=== PATIENT | male | born 1980 | race African-American/Black ===

== ENCOUNTER 2017-02-12 07:30 | Emergency (ER) | payer SELFPAY ==
[2017-02-12] MEDS ORDERED: BENTYL I.M. INJ 10 MG IM ONE ×2 (07:41→07:44)
[2017-02-12 07:49] VITALS: BP 146/68; BMI 45.6
--- NOTE | 2017-02-12 08:10 | DR.GENAD ---
HPI - PCP Primary Care Physician: RAY - Complaint/Symptoms Chief Complaint:: PT C/O SEVERE ABD PAIN THAT STARTED LAST NIGHT WITH DIARRHEA. PT DENIES ANY N/V - Nurses notes reviewed Nurses Notes Review: Yes - Source History Provided: Patient - Mode of Arrival Mode of Arrival: EMS - Timing Onset of Chief Complaint: 02/12/17 Came on: At Night - Duration Duration: Constant How lon Duration: Hours - Location Location: abdomin - Severity Severity: Moderate - Modifying Factors Worsens:: food - Associated Signs and Symptoms Associated Signs and Symptoms: pain PMH - PMH Past Medical History: Yes Past Medical History: Hypertension Past Surgical History: Yes Surgical History: Abdominal Surgery, Other - Family History History of Family Medical Conditions: Yes Family Medical History: Diabetes Mellitus, Hypertension - Social History Does any household member use tobacco: No Alcohol Use: None Do you use any recreational Drugs:: No Lives With: Family Lives Where: Home - infectious screening In the last 2 months have you had wt loss of >10#?: NO Have you had fever, night sweats or hemotysis?: No Have you traveled outside the country in the last 6 months?: No Isolation: Standard ROS - Review of Systems Constitutional: No Symptoms Reported Eyes: No Symptoms Reported ENTM: No Symptoms Reported Respiratoy: No Symptoms Reported Cardiovascular: No Symptoms Reported Gastrointestinal/Abdominal: Abdominal Pain, Diarrhea Genitourinary: No Symptoms Reported Neurological: No Symptoms Reported Musculoskeletal: No Symptoms Reported Integumentary: No Symptoms Reported Hematologic/Lymphatic: No Symptoms Reported Endocrine: No Symptoms Reported Psychiatric: No Symptoms Reported PE - Vital Signs Vitals: Temperature 97.4 F Pulse Rate 82 Respiratory Rate 22 Blood Pressure 146/68 O2 Sat by Pulse Oximetry 97 - General Limitations: No Limitations General Appearance: Alert - Head Head Exam: Normal Inspection, Atraumatic - Eyes Eye exam: Normal Appearance, Conjunctival Injection - ENT ENT Exam: Normal Exam External Ear Exam: Normal External Inspection Nose Exam: Normal Nose Exam Mouth Exam: Normal Inspection Throat Exam: Normal Inspection - Neck Neck Exam: Normal Inspection, Full ROM, Trachea Midline - Chest Chest Inspection: Normal Inspection - Respiratory Respiratory Exam: Normal Lung Sounds Bilat. negative: Accessory Muscle Use, Respiratory Distress Respiratory Exam: Bilateral Clear to Auscultation - Cardiovascular Cardiovascular Exam: Regular Rate - Abdominal Exam Abdominal Exam: Normal Inspection, Soft, Tenderness, Hypoactive Bowel Sounds. negative: Distention, Guarding, Rebound Abdominal Tenderness: Diffuse - Extremities Extremities Exam: Normal Inspection - Back Back Exam: Normal Inspection - Neurologic Neurological Exam: Alert, Oriented X3, CN II-XII Intact - Psychiatric Psychiatric Exam: Flat Affect - Skin Skin Exam: Intact, Normal Color ROR - Labs Reviewed Result Diagrams: 02/12/17 08:30 02/12/17 08:30 Laboratory: 02/12/17 12:56 Stool - Final WBC 9.9 X10^3/uL (3.6-10.0) 02/12/17 08:30 RBC 4.54 X10^6/uL (4.7-6.0) L 02/12/17 08:30 Hgb 13.9 g/dL (13.5-18.0) 02/12/17 08:30 Hct 43.0 % (42.0-54.0) 02/12/17 08:30 MCV 94.8 fL (80.0-100.0) 02/12/17 08:30 MCH 30.6 pg (27.0-34.0) 02/12/17 08:30 MCHC 32.3 g/dL (33.0-35.0) L 02/12/17 08:30 RDW 13.7 % (11.6-16.5) 02/12/17 08:30 Plt Count 209 X10^3/uL (150.0-450.0) 02/12/17 08:30 Plt Count Comment Adequate (ADEQUATE) 02/12/17 08:30 MPV 8.2 fL (7.4-11.0) 02/12/17 08:30 Neut % 61.2 % (42.0-75.0) 02/12/17 08:30 Lymph % 29.6 % (21.0-51.0) 02/12/17 08:30 Coos % 5.8 % (0.0-13.0) 02/12/17 08:30 Eos % 2.7 % (0.9-2.9) 02/12/17 08:30 Baso % 0.7 % (0.2-1.0) 02/12/17 08:30 Neut # 6.1 x10^3/uL (2.2-4.8) H 02/12/17 08:30 Lymph # 2.9 X10^3/uL (1.3-2.9) 02/12/17 08:30 [place]os # 0.6 x10^3/uL (0.3-0.8) 02/12/17 08:30 Eos # 0.3 x10^3/uL (0.0-0.2) H 02/12/17 08:30 Baso # 0.1 X10^3/uL (0.0-0.1) 02/12/17 08:30 Absolute Nucleated RBC 0.0 /100WBC 02/12/17 08:30 Plt Clumps, EDTA Rare 02/12/17 08:30 Plt Morphology Comment Normal (NORMAL) 02/12/17 08:30 RBC Morphology Normal (NORMAL) 02/12/17 08:30 Sodium 142 mmol/L (136-145) 02/12/17 08:30 Corrected Sodium 142 mmol/L (136-145) 02/12/17 08:30 Potassium 3.9 mmol/L (3.5-5.1) 02/12/17 08:30 Chloride 105 mmol/L (98-107) 02/12/17 08:30 Carbon Dioxide 29.2 mmol/L (21-32) 02/12/17 08:30 BUN 16 mg/dL (7-18) 02/12/17 08:30 Creatinine 1.14 mg/dL (0.70-1.30) 02/12/17 08:30 Est GFR (MDRD) Af Amer > 60 (>60) 02/12/17 08:30 Est GFR (MDRD) Non-Af > 60 (>60) 02/12/17 08:30 Glucose 111 mg/dL (65-99) H 02/12/17 08:30 Calcium 8.9 mg/dL (8.5-10.1) 02/12/17 08:30 Corrected Calcium TNP 02/12/17 08:30 Total Bilirubin 0.40 mg/dL (0.2-1.0) 02/12/17 08:30 AST 30 Units/L (15-37) 02/12/17 08:30 ALT 41 Units/L (12-78) 02/12/17 08:30 Alkaline Phosphatase 92 Units/L (46-116) 02/12/17 08:30 Total Protein 8.1 g/dL (6.4-8.2) 02/12/17 08:30 Albumin 3.5 g/dL (3.4-5.0) 02/12/17 08:30 Globulin 4.6 g/dL (2.5-4.5) H 02/12/17 08:30 Albumin/Globulin Ratio 0.8 Ratio (1.1-2.1) L 02/12/17 08:30 Amylase 73 Units/L (25-115) 02/12/17 08:30 Lipase 101 Units/L (73-393) 02/12/17 08:30 Specimen Type Clean catch urine 02/12/17 12:58 Urine Color Yellow (YELLOW) 02/12/17 12:58 Urine Appearance Clear (CLEAR) 02/12/17 12:58 Urine pH 5.0 (5.0 - 8.0) 02/12/17 12:58 Ur Specific [place] 1.010 (1.000-1.030) 02/12/17 12:58 Urine Protein Negative (NEGATIVE) 02/12/17 12:58 Urine Glucose (UA) Negative (NEGATIVE) 02/12/17 12:58 Urine Ketones Negative (NEGATIVE) 02/12/17 12:58 Urine Occult Blood Negative (NEGATIVE) 02/12/17 12:58 Urine Nitrite Negative (NEGATIVE) 02/12/17 12:58 Urine Bilirubin Negative (NEGATIVE) 02/12/17 12:58 Urine Urobilinogen Normal (NORMAL) 02/12/17 12:58 Ur Leukocyte Esterase 1+ (NEGATIVE) 02/12/17 12:58 Urine RBC 0-2 /HPF (NEGATIVE) 02/12/17 12:58 Urine WBC 0-2 /HPF (NEGATIVE) 02/12/17 12:58 Ur Squamous Epith Cells Rare /HPF (NEGATIVE) 02/12/17 12:58 Urine Bacteria Trace /HPF (NEGATIVE) 02/12/17 12:58 Ur Culture Indicated? No/not indicated 02/12/17 12:58 Stool Description 10grms bloody,loose 02/12/17 12:58 Stl Occult Blood (IFOB) Positive (NEGATIVE) A 02/12/17 12:58 Stool for White Cells No wbc's seen (None) 02/12/17 12:58 - XRAY XRAY Interpreted by: Radiologist XRAY Findings: CT abdo/pelvis: colitis - Diagnosis Discharge Problem: Colitis - Discharge Plan Condition: Stable Prescriptions: Ciprofloxacin HCl [CIPRO 500 MG TAB *] 500 mg PO Q12H #20 tab Tramadol HCl [ULTRAM 50 MG *] 50 mg PO Q8H PRN #21 tab PRN Reason: Pain - Follow ups/Referrals Follow ups/Referrals: Sera BELL [Primary Care Provider] - 3 days - Instructions
[2017-02-12 08:47] LABS: BASOPHILS # (AUTO) 0.1 X10^3/uL (0.0-0.1); BASOPHILS % (AUTO) 0.7 % (0.2-1.0); EOSINOPHILS # (AUTO) 0.3 x10^3/uL (0.0-0.2); EOSINOPHILS % (AUTO) 2.7 % (0.9-2.9); HEMOGLOBIN 13.9 g/dL (13.5-18.0); LYMPHOCYTES # (AUTO) 2.9 X10^3/uL (1.3-2.9); LYMPHOCYTES % (AUTO) 29.6 % (21.0-51.0); MEAN CORPUSCULAR HEMOGLOBIN 30.6 pg (27.0-34.0); MEAN CORPUSCULAR HGB CONC 32.3 g/dL (33.0-35.0); MEAN CORPUSCULAR VOLUME 94.8 fL (80.0-100.0); MEAN PLATELET VOLUME 8.2 fL (7.4-11.0); MONOCYTES # (AUTO) 0.6 x10^3/uL (0.3-0.8); MONOCYTES % (AUTO) 5.8 % (0.0-13.0); NEUTROPHILS # (AUTO) 6.1 x10^3/uL (2.2-4.8); NEUTROPHILS % (AUTO) 61.2 % (42.0-75.0); PLATELET COUNT 209 X10^3/uL (150.0-450.0); RED BLOOD COUNT 4.54 X10^6/uL (4.7-6.0); RED CELL DISTRIBUTION WIDTH 13.7 % (11.6-16.5); WHITE BLOOD COUNT 9.9 X10^3/uL (3.6-10.0)
[2017-02-12 08:55] LABS: ALANINE AMINOTRANSFERASE 41 Units/L (12-78); ALBUMIN 3.5 g/dL (3.4-5.0); ALKALINE PHOSPHATASE 92 Units/L (46-116); AMYLASE 73 Units/L (25-115); ASPARTATE AMINO TRANSFERASE 30 Units/L (15-37); BLOOD UREA NITROGEN 16 mg/dL (7-18); CALCIUM 8.9 mg/dL (8.5-10.1); CARBON DIOXIDE 29.2 mmol/L (21-32); CHLORIDE 105 mmol/L (98-107); COR NA(FOR HYPERGLY) 142 mmol/L (136-145); CREATININE 1.14 mg/dL (0.70-1.30); GLUCOSE 111 mg/dL (65-99); LIPASE 101 Units/L (73-393); SODIUM 142 mmol/L (136-145); TOTAL PROTEIN 8.1 g/dL (6.4-8.2); eGFR BLACK RACES > 60 (>60); eGFR NON BLACK RACES > 60 (>60)
[2017-02-12] MEDS ORDERED: NS 500 ML IV 1,000 ML IV ONE (09:00)
[2017-02-12] MEDS ORDERED: NS 1000 ML 1,000 ML ONE (09:01)
[2017-02-12] MEDS ORDERED: REGLAN INJ 10 MG VIAL IVP ONE (09:05)
[2017-02-12] MEDS ORDERED: REGLAN INJ 10 MG VIAL ONE (09:06)
[2017-02-12 09:13] LABS: PLATELET MORPHOLOGY COMMENT NORMAL (NORMAL)
--- NOTE | 2017-02-12 10:33 | RAD ---
HISTORY: Abdominal pain Study: Acute abdominal series Comparison: None Findings: There is smooth benign appearing bilateral pleural thickening. The trachea is midline. The cardiac silhouette is borderline enlarged. The lungs are clear without focal mass or consolidation. There is no effusion or pneumothorax. The bony thorax is grossly unremarkable. Flat plate and upright evaluation of the abdomen demonstrates a normal bowel gas pattern without pne umoperitoneum. No pathological soft tissue mass or calcification can be observed. There is mild kenny mbar scoliosis. IMPRESSION: 1. No acute cardiopulmonary disease. 2. No evidence for acute abdominal pathology identified. Reported By:
[2017-02-12 13:06] LABS: BILIRUBIN,URINE NEGATIVE (NEGATIVE); BLOOD/HEMOGLOBIN,URINE NEGATIVE (NEGATIVE); GLUCOSE, URINE NEGATIVE (NEGATIVE); KETONES,URINE NEGATIVE (NEGATIVE); LEUKOCYTE ESTERASE ,URINE 1+ (NEGATIVE); NITRITES,URINE NEGATIVE (NEGATIVE); PROTEIN,URINE NEGATIVE (NEGATIVE); UROBILINOGEN,URINE NORMAL (NORMAL)
[2017-02-12 13:22] LABS: APPEARANCE,URINE CLEAR (CLEAR); BACTERIA,URINE TRACE /HPF (NEGATIVE); COLOR,URINE YELLOW (YELLOW); RBC,URINE 0-2 /HPF (NEGATIVE); SQUAMOUS EPITHELIAL CELL,UR RARE /HPF (NEGATIVE)
--- NOTE | 2017-02-12 13:39 | CT ---
CT abdomen and pelvis without contrast Indication: Abdominal pain with bloody diarrhea Comparison: None available Technique: Multiple axial images of the abdomen and pelvis were obtained from the lung bases to the pubic symph ysis without the administration of IV contrast. Radiation dose reduction techniques were performed utilizing adjustment for MA/kVP based on patient body size. Findings: The lung bases are clear. No focal hepatic lesion is identified. The gallbladder, bile ducts, spleen , pancreas and adrenal glands are normal. Neither kidney demonstrates evidence of nephrolithiasis hy dronephrosis or mass. Upper GI tract demonstrates no evidence of mass or obstruction. Multiple loops of small bowel are clumped together within the left lower quadrant; however there is no small bowel dilatation or evidence of obstruction. Urinary bladder is unremarkable. The prostate gland is unrem arkable. The rectum demonstrates thickening distally consistent with acute colitis. Via syndesmosis at the sigmoid colon. The appendix is normal. Abdominal aorta is normal in caliber. No abdominal or pelvic lymphadenopathy. Scarring is noted within the anterior abdominal wall. Review of bone windows demonstrates no acute osseous abnormality. Impression: 1.Circumferential segmental thickening of the distal colon most consistent with acute colitis, no d iscrete colonic mass is identified. Reported By:
== END 2017-02-12 14:13 | disposition home or self-care (01) ==
LOC: ER 07:35
DX: K52.89 Other specified noninfective gastroenteritis and colitis (principal); R10.84 Generalized abdominal pain
CPT/HCPCS: 36415; 74022; 74176; 80053; 81001; 82150; 82270; 83690; 85025; 87045; 87205; 87427; 87899; 96365; 96372; 96374; 96375; 99283; A4216; A4222; J0500; J2765

== ENCOUNTER 2017-06-04 15:36 | Emergency (ER) | payer SELFPAY ==
[2017-06-04 15:45] VITALS: BP 147/75
--- NOTE | 2017-06-04 17:11 | DR.GENAD ---
HPI - PCP Primary Care Physician: RAY - HPI Comment HPI Comment: Pt c/o elevated BP and heart racing earlier upon presentation but has resolved after taking a Xanax. - Complaint/Symptoms Chief Complaint Doctors Comments: My heart is racing". Chief Complaint:: PT C/O FEELING LIKE I AM GOING TO PASS OUT AND PRESSURE IN MY HEAD , AND LIGHT HEADEDNESS. ".. - Nurses notes reviewed Nurses Notes Review: Yes - Source History Provided: Patient - Mode of Arrival Mode of Arrival: Ambulatory - Timing Onset of Chief Complaint: 06/02/17 Came on: Suddenly - Duration Duration: Since Onset How lon Duration: Minutes - Severity Severity: Moderate - Modifying Factors Improves:: xanax PMH - PMH Past Medical History: Yes Past Medical History: Hypertension Past Surgical History: Yes Surgical History: Abdominal Surgery, Other Past Surgical History Comment: ABD SURGERY ,,,,, 2010 WITH COLOSTOMY AND A REVERSAL IN 2010.... - Family History History of Family Medical Conditions: Yes Family Medical History: Diabetes Mellitus, Hypertension - Social History Does patient currently use any type of tobacco product: No Have you used tobacco products in the last 12 months: No Type of Tobacco Use: None Does any household member use tobacco: No Alcohol Use: None Do you use any recreational Drugs:: No Lives With: Family Lives Where: Home - infectious screening In the last 2 months have you had wt loss of >10#?: NO Have you had fever, night sweats or hemotysis?: No Have you traveled outside the country in the last 6 months?: No Isolation: Standard ROS - Review of Systems Constitutional: No Symptoms Reported Eyes: No Symptoms Reported ENTM: No Symptoms Reported Respiratoy: No Symptoms Reported Cardiovascular: Palpitations Gastrointestinal/Abdominal: No Symptoms Reported Genitourinary: No Symptoms Reported Neurological: Anxiety Musculoskeletal: No Symptoms Reported Integumentary: No Symptoms Reported Hematologic/Lymphatic: No Symptoms Reported Psychiatric: Anxiety All Other Systems: Reviewed and Negative PE - Vital Signs Vitals: Temperature 98.2 F Pulse Rate 97 Respiratory Rate 20 Blood Pressure 147/75 O2 Sat by Pulse Oximetry 96 - General Limitations: No Limitations General Appearance: Alert, In No Apparent Distress - Head Head Exam: Normal Inspection - Eyes Eye exam: Normal Appearance, PERRL, EOMI - ENT ENT Exam: Normal Exam, Normal Oropharynx, Mucous Membranes Moist External Ear Exam: Normal External Inspection TM/Canal Exam: Bilateral Normal Nose Exam: Normal Nose Exam Mouth Exam: Normal Inspection Throat Exam: Normal Inspection - Neck Neck Exam: Normal Inspection, Full ROM, Trachea Midline - Chest Chest Inspection: Normal Inspection - Respiratory Respiratory Exam: Normal Lung Sounds Bilat Respiratory Exam: Bilateral Clear to Auscultation - Cardiovascular Cardiovascular Exam: Regular Rate, Normal Rhythm - Abdominal Exam Abdominal Exam: Normal Inspection - Extremities Extremities Exam: Normal Inspection, Full ROM - Back Back Exam: Normal Inspection, Full ROM - Neurologic Neurological Exam: Alert, Oriented X3, CN II-XII Intact - Psychiatric Psychiatric Exam: Normal Affect - Skin Skin Exam: Warm, Dry, Intact, Normal Color [facility] - Differential Diagnosis Differential Diagnosis: panic attack, anxiety , hypertension, palpitations Course - Reevaluation 1st: Resolved (Pt took his xanax) ROR - Labs Reviewed Laboratory Results Reviewed?: No (none) - Diagnosis Discharge Problem: Panic attack - Discharge Plan Disposition: 01 HOME, SELF-CARE Condition: Stable - Follow ups/Referrals Follow ups/Referrals: Sera BELL [Primary Care Provider] - 3 days - Instructions Instructions: Panic Attacks, [id number]
== END 2017-06-04 17:38 | disposition home or self-care (01) ==
LOC: ER 15:48
DX: F41.0 Panic disorder [episodic paroxysmal anxiety] (principal)
CPT/HCPCS: 99281; 99282

== ENCOUNTER 2019-11-05 13:34 | Observation (INO) ==
--- NOTE | 2019-11-05 13:52 | DR.EXTPAIN ---
HPI Time seen Time Seen by Provider: 11/05/19 13:51 PCP Primary Care Physician: chacho salas HPI Comment HPI Comment: PATIENT IS 39YR OLD MALE IN ER WITH WITH INCRESING SOB, WEAKNESS AND POOR APPETITE FOR SEVERAL DAYS. DIADNOSED WITH FLU AND RESPIRATORY ILLNESS AND OFFER HOSPITAL ADMISSION BUT SIGN OUT AMA. BACK TODAY WORSE. HE IS WEAK AND DRAINED OF ENERGY. Complaint/Symptoms Chief Complaint Doctor Comments: GENERALIZED WEAKNESS, SOB AND DRINED OF ENERGY. Chief Complaint:: patient stated he has been weak, loss of appitate, tired when he walks, dehydrated. pt stated he was seen in the er 2 nights ago and wanted to keep him but he went home. Nurses notes reviewed Nurses Notes Review: Yes Source History Provided: Patient Mode of arrival Mode of Arrival: Ambulatory Timing Onset of Chief Complaint: 11/03/19 Context History of: None Associated signs and symptoms Associated Signs and Symptoms: Weakness, Fever, Cough, Headache, Nausea, Pleuritic Chest Pain and Shortness of Breath PMH PMH Past Medical History: Yes Past Medical History: Anxiety, Diabetes and Hypertension Past Surgical History: Yes Surgical History: Abdominal Surgery and Other Family History History of Family Medical Conditions: Yes Family Medical History: Diabetes Mellitus, Cancer, [place] and Coronary Artery Disease Social History Does patient currently use any type of tobacco product: No Have you used tobacco products in the last 12 months: No Type of Tobacco Use: None Does any household member use tobacco: No Alcohol Use: None Do you use any recreational Drugs:: No Lives With: Family Lives Where: Home infectious screening In the last 2 months have you had wt loss of >10#?: NO Have you had fever, night sweats or hemotysis?: No Have you traveled outside the country in the last 6 months?: No Isolation: Standard ROS Review of Systems Constitutional: See HPI, Fever, Malaise, Weakness and Fatigue Eyes: No Symptoms Reported and See HPI ENTM: See HPI, Nose Pain and Nose Discharge; negative Ear Pain and Throat Pain Respiratoy: See HPI, Productive Cough, Short of Breath and Wheezing Cardiovascular: See HPI, Chest Pain and Edema Gastrointestinal/Abdominal: See HPI and Nausea; negative Diarrhea and Vomiting Genitourinary: No Symptoms Reported and See HPI; negative Dysuria, Frequency and Hematuria Neurological: See HPI, Headache, Weakness and Dizziness Musculoskeletal: See HPI, Back Pain and Muscle Pain Integumentary: See HPI and Dryness; negative Change in Color, Rash and Juandice Hematologic/Lymphatic: No Symptoms Reported and See HPI; negative Easy Bruising and Swollen Glands Endocrine: See HPI, Increased Thirst and Decreased Appetite; negative Increased Urine Psychiatric: No Symptoms Reported and See HPI All Other Systems: Reviewed and Negative PE Vital Signs Vitals: Temperature 100.0 F Pulse Rate 97 Respiratory Rate 16 Blood Pressure [Left Arm] 127/71 Blood Pressure 129/61 O2 Sat by Pulse Oximetry 100 General Limitations: No Limitations General Appearance: Alert and In Distress Head Head Exam: Normal Inspection and Atraumatic Eyes Eye exam: Normal Appearance and PERRL; negative Scleral Icterus and Conjunctival Injection ENT ENT Exam: Normal External Ear Exam; negative Normal Oropharynx and TM's Normal Bilaterally Neck Neck Exam: Normal Inspection and Trachea Midline; negative Tenderness and Lymphadenopathy Chest Chest Inspection: Symmetric Chest Wall Rise; negative Tenderness Respiratory Respiratory Exam: Accessory Muscle Use, Prolonged Expiratory Phase and Respiratory Distress; negative Chest Wall Tenderness Respiratory Exam: Bilateral: Wheezing and Bilateral: Rhonchi and Lower: Wheezing and Lower: Rhonchi Cardiovascular Cardiovascular Exam: Regular Rate, Normal Rhythm, Normal Heart Sounds and +S3; negative Systolic Murmur and Diastolic Murmur Abdominal Exam Abdominal Exam: Normal Inspection, Normal Bowel Sounds and Soft; negative Tenderness Extremities Extremities Exam: Normal Inspection and Normal Capillary Refill; negative Tenderness, Edema and Calf Tenderness Back Back Exam: Normal Inspection Neurological Neurological Exam: Alert and Oriented X3; negative Motor Sensory Deficit Psychiatric Psychiatric Exam: Normal Affect and Anxious Skin Skin Exam: Dry and Other (EDEMA.) MDM Differential Diagnosis Differential Diagnosis: Other (PNEUMONIA, BRONCHITIS, RESP. DISTRESS, INFLUENZA, HTN, DM.) COURSE Treatment Treatment: SEE ORDERS. NS 1L IV, LEVAQUIN, 750MG IVPB. Consultation Consultation Comments: PATIENT ADMITTED TO DR. MCKENZIE. Education/Counseling Education/Counseling: Patient Educated On: Diagnosis ROR Labs Reviewed Laboratory Results Reviewed?: Yes Result Diagrams: 11/06/19 05:56 11/06/19 05:56 Laboratory: WBC 4.1 X10^3/uL (3.6-10.0) 11/05/19 14:25 RBC 4.40 X10^6/uL (4.7-6.0) L 11/05/19 14:25 Hgb 13.7 g/dL (13.5-18.0) 11/05/19 14:25 Hct 41.5 % (42.0-54.0) L 11/05/19 14:25 MCV 94.4 fL (80.0-100.0) 11/05/19 14:25 MCH 31.2 pg (27.0-34.0) 11/05/19 14:25 MCHC 33.1 g/dL (33.0-35.0) 11/05/19 14:25 RDW 13.6 % (11.6-16.5) 11/05/19 14:25 Plt Count 224 X10^3/uL (150.0-450.0) 11/05/19 14:25 MPV 7.4 fL (7.4-11.0) 11/05/19 14:25 Neut % (Auto) 69.1 % (42.0-75.0) 11/05/19 14:25 Lymph % (Auto) 21.4 % (21.0-51.0) 11/05/19 14:25 [place] % (Auto) 8.9 % (0.0-13.0) 11/05/19 14:25 Eos % (Auto) 0.0 % (0.9-2.9) L 11/05/19 14:25 Baso % (Auto) 0.6 % (0.2-1.0) 11/05/19 14:25 Neut # (Auto) 2.9 x10^3/uL (2.2-4.8) 11/05/19 14:25 Lymph # (Auto) 0.9 X10^3/uL (1.3-2.9) L 11/05/19 14:25 [place] # (Auto) 0.4 x10^3/uL (0.3-0.8) 11/05/19 14:25 Eos # (Auto) 0.0 x10^3/uL (0.0-0.2) 11/05/19 14:25 Baso # (Auto) 0.0 X10^3/uL (0.0-0.1) 11/05/19 14:25 Absolute Nucleated RBC 0.0 /100WBC 11/05/19 14:25 Sodium 138 mmol/L (136-145) 11/05/19 14:25 Corrected Sodium TNP 11/05/19 14:25 Potassium 4.0 mmol/L (3.5-5.1) 11/05/19 14:25 Chloride 100 mmol/L (98-107) 11/05/19 14:25 Carbon Dioxide 31.8 mmol/L (21-32) 11/05/19 14:25 BUN 21 mg/dL (7-18) H 11/05/19 14:25 Creatinine 1.60 mg/dL (0.70-1.30) H 11/05/19 14:25 Est GFR (MDRD) Af Amer > 60 (>60) 11/05/19 14:25 Est GFR (MDRD) Non-Af 52 (>60) L 11/05/19 14:25 Glucose 94 mg/dL (65-99) 11/05/19 14:25 Calcium 8.2 mg/dL (8.5-10.1) L 11/05/19 14:25 Corrected Calcium 8.8 mg/dL (8.5-10.1) 11/05/19 14:25 Total Bilirubin 0.50 mg/dL (0.2-1.0) 11/05/19 14:25 AST 45 Units/L (15-37) H 11/05/19 14:25 ALT 45 Units/L (12-78) 11/05/19 14:25 Alkaline Phosphatase 95 Units/L (46-116) 11/05/19 14:25 Total Protein 7.7 g/dL (6.4-8.2) 11/05/19 14:25 Albumin 3.3 g/dL (3.4-5.0) L 11/05/19 14:25 Globulin 4.4 g/dL (2.5-4.5) 11/05/19 14:25 Albumin/Globulin Ratio 0.8 Ratio (1.1-2.1) L 11/05/19 14:25 XRAY XRAY Interpreted by: Radiologist XRAY Findings: REPORT NOTED AND DISCUSSED WITH PATIENT. Opioid Opioid Risk Tool Age ([place] box if 16-45): Yes History of Preadolescent Sexual Abuse: No Total: 1 Total Score Risk Category: Low Risk Copyright: [facility] predicting aberrant behaviors Diagnosis Discharge Problem: Influenza A, Acute dehydration Acute bronchitis Qualifiers: Bronchitis organism: unspecified organism Qualified Code(s): J20.9 - Acute bronchitis, unspecified Hypotension Qualifiers: Hypotension type: unspecified hypotension type Qualified Code(s): I95.9 - Hypotension, unspecified
[2019-11-05 14:31] LABS: BASOPHILS % (AUTO) 0.6 % (0.2-1.0); HEMATOCRIT 41.5 % (42.0-54.0); HEMOGLOBIN 13.7 g/dL (13.5-18.0); LYMPHOCYTES # (AUTO) 0.9 X10^3/uL (1.3-2.9); LYMPHOCYTES % (AUTO) 21.4 % (21.0-51.0); MEAN CORPUSCULAR HEMOGLOBIN 31.2 pg (27.0-34.0); MEAN CORPUSCULAR HGB CONC 33.1 g/dL (33.0-35.0); MEAN CORPUSCULAR VOLUME 94.4 fL (80.0-100.0); MEAN PLATELET VOLUME 7.4 fL (7.4-11.0); MONOCYTES # (AUTO) 0.4 x10^3/uL (0.3-0.8); MONOCYTES % (AUTO) 8.9 % (0.0-13.0); NEUTROPHILS # (AUTO) 2.9 x10^3/uL (2.2-4.8); NEUTROPHILS % (AUTO) 69.1 % (42.0-75.0); PLATELET COUNT 224 X10^3/uL (150.0-450.0); RED CELL DISTRIBUTION WIDTH 13.6 % (11.6-16.5); WHITE BLOOD COUNT 4.1 X10^3/uL (3.6-10.0)
--- NOTE | 2019-11-05 14:41 | RAD ---
HISTORYWeakness SOBSTUDYPortable AP [id number] moderate cardiomegaly. The peripheral lungs and pleural sp aces are clear. There is no evidence for CHF or pneumonia.IMPRESSIONStable cardiomegaly.Electronicall y signed by: KRISTY VILLALPANDO (Nov 05, 2019 14:39:25)
[2019-11-05 14:43] LABS: ALANINE AMINOTRANSFERASE 45 Units/L (12-78); ALBUMIN 3.3 g/dL (3.4-5.0); ALKALINE PHOSPHATASE 95 Units/L (46-116); ASPARTATE AMINO TRANSFERASE 45 Units/L (15-37); BLOOD UREA NITROGEN 21 mg/dL (7-18); CALCIUM 8.2 mg/dL (8.5-10.1); CARBON DIOXIDE 31.8 mmol/L (21-32); CHLORIDE 100 mmol/L (98-107); COR CA(FOR HYPOALB) 8.8 mg/dL (8.5-10.1); SODIUM 138 mmol/L (136-145); TOTAL PROTEIN 7.7 g/dL (6.4-8.2); eGFR NON BLACK RACES 52 (>60)
[2019-11-05] MEDS ORDERED: NS 1000 ML 1,000 ML IV ONE (14:52)
[2019-11-05] MEDS ORDERED: TYLENOL 500 MG TAB EXTRA STRENGTH PO ONE ×2 (16:38→16:39)
[2019-11-05] MEDS ORDERED: NS 1000 ML 1,000 ML ONE (16:40)
[2019-11-05] MEDS ORDERED: LEVAQUIN PREMIX IV 750 MG 750 MG/150 ML BAG IV ONE (16:40)
[2019-11-05] MEDS: LEVAQUIN PREMIX IV 750 MG 750 MG/150 ML BAG IV ONE ×2 (16:46→18:12)
[2019-11-05] MEDS: NS 1000 ML 1,000 ML IV SCH (16:47)
[2019-11-05] MEDS ORDERED: ZOFRAN INJ 4 MG VIAL IVP PRN (18:03)
[2019-11-05 18:21] LABS: BILIRUBIN,URINE NEGATIVE (NEGATIVE); BLOOD/HEMOGLOBIN,URINE 1+ (NEGATIVE); GLUCOSE, URINE NEGATIVE (NEGATIVE); KETONES,URINE NEGATIVE (NEGATIVE); LEUKOCYTE ESTERASE ,URINE NEGATIVE (NEGATIVE); NITRITES,URINE NEGATIVE (NEGATIVE); PROTEIN,URINE 3+ (NEGATIVE); UROBILINOGEN,URINE 2+ (NORMAL)
[2019-11-05 19:08] LABS: APPEARANCE,URINE SLIGHTLY HAZY (CLEAR); COLOR,URINE DARK YELLOW (YELLOW)
[2019-11-05 19:09] LABS: BACTERIA,URINE NEGATIVE /HPF (NEGATIVE); SQUAMOUS EPITHELIAL CELL,UR FEW /HPF (NEGATIVE)
[2019-11-05] MEDS ORDERED: COREG TAB 25 MG PO SCH (21:00)
[2019-11-05 21:54] VITALS: BMI 57.2
[2019-11-05] MEDS: XANAX PO SCH (21:54)
[2019-11-06] MEDS: NS 1000 ML 1,000 ML IV SCH ×3 (03:01→18:32)
[2019-11-06 06:37] LABS: BASOPHILS % (AUTO) 0.6 % (0.2-1.0); HEMATOCRIT 37.4 % (42.0-54.0); HEMOGLOBIN 12.4 g/dL (13.5-18.0); LYMPHOCYTES # (AUTO) 0.7 X10^3/uL (1.3-2.9); LYMPHOCYTES % (AUTO) 21.2 % (21.0-51.0); MEAN CORPUSCULAR HEMOGLOBIN 31.6 pg (27.0-34.0); MEAN CORPUSCULAR HGB CONC 33.2 g/dL (33.0-35.0); MEAN CORPUSCULAR VOLUME 95.2 fL (80.0-100.0); MEAN PLATELET VOLUME 8.2 fL (7.4-11.0); MONOCYTES # (AUTO) 0.2 x10^3/uL (0.3-0.8); MONOCYTES % (AUTO) 7.5 % (0.0-13.0); NEUTROPHILS # (AUTO) 2.4 x10^3/uL (2.2-4.8); NEUTROPHILS % (AUTO) 70.7 % (42.0-75.0); PLATELET COUNT 185 X10^3/uL (150.0-450.0); RED BLOOD COUNT 3.93 X10^6/uL (4.7-6.0); RED CELL DISTRIBUTION WIDTH 13.3 % (11.6-16.5); WHITE BLOOD COUNT 3.3 X10^3/uL (3.6-10.0)
[2019-11-06 06:56] LABS: ALANINE AMINOTRANSFERASE 48 Units/L (12-78); ALBUMIN 2.6 g/dL (3.4-5.0); ALKALINE PHOSPHATASE 82 Units/L (46-116); ASPARTATE AMINO TRANSFERASE 56 Units/L (15-37); BLOOD UREA NITROGEN 16 mg/dL (7-18); CALCIUM 7.3 mg/dL (8.5-10.1); CARBON DIOXIDE 29.2 mmol/L (21-32); CHLORIDE 103 mmol/L (98-107); COR CA(FOR HYPOALB) 8.4 mg/dL (8.5-10.1); CREATININE 1.22 mg/dL (0.70-1.30); MAGNESIUM 1.7 mg/dL (1.7-2.9); SODIUM 139 mmol/L (136-145); TOTAL PROTEIN 6.6 g/dL (6.4-8.2); eGFR NON BLACK RACES > 60 (>60)
[2019-11-06] MEDS: TYLENOL 325 MG TAB PO PRN ×2 (07:57→17:11)
[2019-11-06] MEDS ORDERED: LEVAQUIN PREMIX IV 750 MG 750 MG/150 ML BAG IV SCH (09:00)
--- NOTE | 2019-11-06 10:16 | DR.H&P ---
H&P - History & Physical for Day of: H&P Date: 11/05/19 - Chief Complaint Chief Complaint: WEAKNESS, DECREASED APPETITIE, FALLS, DEHYDRATION - History of Present Illness History of Present Illness: IS A 39 YEAR OLD PATIENT OF WHO PRESENTED TO THE ER WITH COMPLAINTS OF WEAKNESS, LOSS OF APPETITIE, FALLS, COUGH, SHORTNESS OF BREATH, AND DEHYDRATION. HE WAS DIAGNOSED WITH FLU A TWO DAYS AGO. HE REPORTS COMPLIANCE WITH MEDICATIONS, BUT SAYS THAT SYMPTOMS HAVE WORSENED. ON ARRIVAL TO THE ER, VITALS WERE 101.9-004-88-90-100/57. LABS WERE OBTAINED. ABNORMAL LAB VALUES INCLUDE THE FOLLOWING: RBC 4.40, HCT 41.5, BUN 21, CREATININE 1.60, CALCIUM 8.2, AST 45, ALBUMIN 3.3. URINALYSIS WAS OBTAINED AND REVEALED: WBC 0-2, RBC 3-5, LEUKOCYTES NEGATIVE, BACTERIA NEGATIVE. SPUTUM CULTURE WAS OBTAINED. A CHEST XRAY WAS OBTAINED AND IS STABLE WITH NO CHF OR PNEUMONIA. HE WAS GIVEN TYLENOL 1G PO X 1, LEVAQUIN 750MG IV X 1, AND A NORMAL SALINE BOLUS. HE WAS ADMITTED FOR FURTHER EVALUATION AND TREATMENT OF HYPOTENSION, DEHYDRATION, INFLUENZA, AND ACUTE BRONCHITIS. HE WAS STARTED ON NORMAL SALINE AT 125ML/HR, IV LEVAQUIN, ZOFRAN IV Q8H PRN, TAMIFLU 75MG PO BID, AND RESPIRATORY TREATMENTS. WE WILL REVIEW HIS HOME MEDICATIONS. OTHERWISE, WE PLAN TO FOLLOW UP WITH AM LABS AND CHEST XRAY. - Past Medical History Past Medical History: Hypertension, Diabetes, Anxiety - Past Surgical History Surgical History: Abdominal Surgery, Other - Family History Family Medical History: Diabetes Mellitus, Hypertension - Social History Does patient currently use any type of tobacco product: No Have you used tobacco products in the last 12 months: No Type of Tobacco Use: None Does any household member use tobacco: No Alcohol Use: None Drug Use: None - Medications Home Medications: codeine Allergy (Verified 11/05/19 13:40) Penicillins Allergy (Verified 11/05/19 13:39) - Review of Systems Constitutional: See HPI, Fever, Chills, Weakness ENT: No Symptoms Reported Respiratory: Cough, Shortness of Breath Cardiovascular: Light Headedness Gastrointestinal: No Symptoms Reported Genitourinary: No Symptoms Reported Musculoskeletal: No Symptoms Reported Skin: No Symptoms Reported Neurological: Weakness - Physical Exam Vital Signs: Temperature 101 F Pulse Rate [Right Radial] 95 Pulse Rate 97 Respiratory Rate 22 Blood Pressure [Left Arm] 129/48 Blood Pressure 129/61 O2 Sat by Pulse Oximetry 92 Oriented: Normal Eyes: Normal Ear: Normal Nose: Normal Throat: Normal Respiratory: Diminished Throughout Cardiovascular: Normal : Normal Auscultation: Bowel Sounds: Normal Palpation: Normal Tenderness: Normal Skin: Normal Musculoskeletal: Normal Psychiatric: Normal Mood Description: Calm Affect: Normal Speech Pattern: Clear - Assessment/Plan (1) Acute bronchitis Qualifiers: Bronchitis organism: unspecified organism Qualified Code(s): J20.9 - Acute bronchitis, unspecified Status: Acute Plan: ADMIT, NORMAL SALINE AT 125ML/HR, IV LEVAQUIN, ZOFRAN IV Q8H PRN, TAMIFLU 75MG PO BID, AND RESPIRATORY TREATMENTS, MONITOR LABS AND CHEST XRAY (2) Dehydration Status: Acute (3) Generalized weakness Status: Acute (4) Hypotension Qualifiers: Hypotension type: unspecified hypotension type Qualified Code(s): I95.9 - Hypotension, unspecified Status: Acute (5) Influenza Status: Acute - Allergies Allergies/Adverse Reactions: Allergies Allergy/AdvReac Type Severity Reaction Status Date / Time codeine Allergy Verified 11/05/19 13:40 Penicillins Allergy Verified 11/05/19 13:39
[2019-11-06] MEDS: XANAX PO SCH ×2 (10:31→10:37)
[2019-11-06] MEDS: NORVASC TAB 10 MG PO SCH ×2 (10:32→10:36)
[2019-11-06] MEDS ORDERED: ROBITUSSIN DM PO PRN (14:24)
[2019-11-06] MEDS ORDERED: TAMIFLU PO ONE (14:39)
[2019-11-06] MEDS ORDERED: TAMIFLU PO SCH (15:00)
[2019-11-06] MEDS ORDERED: ROBITUSSIN DM ONE (15:56)
[2019-11-06 16:29] VITALS: BP 116/67
[2019-11-06] MEDS ORDERED: COREG TAB 12.5 MG PO SCH (21:00)
--- NOTE | 2019-11-08 06:26 | RAD ---
HISTORYShortness of breathSTUDYCHEST, 1 [id number]/20/2020FINDINGSThe heart remains enlarged. Bilateral alveolar filling somewhat asymmetric more prominent on the right than the left demonstrates some improvement. No definite pleural effusions are identified. The bony thorax is unremarkable.IMPRESSIONCardiomegaly with some improvement in the bilateral alveolar filling being followedElectronically signed by: JASMINA ORTIZ (Nov 08, 2019 06:25:40)
== END 2019-11-06 17:40 | disposition left against medical advice (07) ==
LOC: ER 13:39 → MED/SURG 13:39
PROVIDERS: ADMIT Obstetrics & Gynecology Obstetrics; ATTEND Obstetrics & Gynecology Obstetrics
DX: I95.89 Other hypotension; R74.8 Abnormal levels of other serum enzymes; I10 Essential (primary) hypertension; J10.1 Influenza due to other identified influenza virus with other respiratory manifestations; E86.0 Dehydration; R94.4 Abnormal results of kidney function studies; R53.1 Weakness; J20.8 Acute bronchitis due to other specified organisms; Z53.29 Procedure and treatment not carried out because of patient's decision for other reasons; Z79.899 Other long term (current) drug therapy; R06.02 Shortness of breath; E11.65 Type 2 diabetes mellitus with hyperglycemia
CPT/HCPCS: 36415; 71010; 71045; 80053; 80307; 81001; 83735; 85025; 87070; 87205; 94760; 96360; 96361; 96365; 96367; 96374; 99284; A4222; G9035; G0378; G0434; J1956; J3490; J7030

== ENCOUNTER 2019-11-07 07:26 | Inpatient (IN) ==
[2019-11-07 08:14] VITALS: BMI 56.3
[2019-11-07] MEDS ORDERED: SOLU-Medrol 125 MG VIAL IVP ONE (08:28)
--- NOTE | 2019-11-07 08:35 | DR.SOBA ---
HPI Time Seen Time Seen by Provider: 11/07/19 08:10 Primary Care Physician Primary Care Physician: MAXX HPI Comment HPI Comment: Pt arrives by EMS. He is morbidly obese. He was seen here 2 days ago in ED and signed out AMA. He returned and got admitted for flu and bronchitis, and signed out yesterday. Today he fainted in the bathroom. No injury. C/O SOB and fever. No chest pain, no headache. Complaints Chief Complaint Doctors Comments: He is poor historian, possibly mentally challenged. His sister is in room. His sats are 86% on 2Lpm. Chief Complaint:: "GOT DIZZY AND FELL IN BATHROOM" Self Treatment fo Chief Complaint: NONE Reviewed Nurses Notes Reviewed: Yes Source History Provided: Patient Mode of Arrival Mode of Arrival: EMS Timing Onset of Chief Complaint: 11/07/19 Duration Onset: a.m. Context Onset:: At Rest PE Risk Factors:: None (other than obesity and I suspect he is not very active.) History of:: Asthma Currently on:: Neither Prehospital Care:: O2 (and neb tx's) Modifying Factors Worsens:: Nothing Improves:: Nothing Associated Signs and Symptoms Associated Signs and Symptoms: Fever, Wheeze and Cough; denies Hemoptysis and Chest Pain If Cough Cough: Yellow PMH PMH Past Medical History: Yes Past Medical History: Anxiety and Hypertension Past Medical History Comment: morbid obesity Past Surgical History: Yes Surgical History: Abdominal Surgery and Other Family History History of Family Medical Conditions: Yes Family Medical History: Diabetes Mellitus and Hypertension Social History Does patient currently use any type of tobacco product: No Have you used tobacco products in the last 12 months: No Type of Tobacco Use: None Does any household member use tobacco: No Alcohol Use: None Do you use any recreational Drugs:: No Lives With: Family Lives Where: Home infectious screening In the last 2 months have you had wt loss of >10#?: NO Have you had fever, night sweats or hemotysis?: No Have you traveled outside the country in the last 6 months?: No Isolation: Standard ROS Review of Systems Constitutional: See HPI and Fever ENTM: No Symptoms Reported Respiratoy: Productive Cough, Short of Breath and Wheezing; negative Hemoptysis Cardiovascular: No Symptoms Reported; negative Chest Pain and Palpitations Gastrointestinal/Abdominal: No Symptoms Reported; negative Abdominal Pain and Vomiting Neurological: Dizziness Musculoskeletal: No Symptoms Reported All Other Systems: Reviewed and Negative PE Vital Signs Vitals: Temperature 101.6 F Pulse Rate 97 Respiratory Rate 35 Blood Pressure [Left Arm] 116/67 Blood Pressure 117/56 O2 Sat by Pulse Oximetry 92 General Limitations: Other (poor historian) General Appearance: Alert and In No Apparent Distress Head Head Exam: Atraumatic Eyes Eye exam: EOMI; negative Scleral Icterus Neck Neck Exam: Full ROM; negative Meningismus Chest Chest Inspection: Symmetric Chest Wall Rise Respiratory Respiratory Exam: negative Respiratory Distress Respiratory Exam: Bilateral: Wheezing Cardiovascular Cardiovascular Exam: Normal Rhythm and Tachycardia Abdominal Exam Abdominal Exam: Normal Inspection; negative Tenderness Extremities Extremities Exam: Full ROM; negative Edema (but very large ankles/legs) Neurologic Neurological Exam: Alert Skin Skin Exam: Warm and Normal Color MDM Differential Diagnosis Differential Diagnosis: CHF, COPD, Pneumonia, Pulmonary embolism and Respiratory Insufficiency Differential Diagnosis Comment:: in light of fever, assume PN COURSE Treatment Treatment: pt very hypoxic. CXR shows bilateral PN or possibly fluid. In light of fever and mildly elevated lactate, will tx as PN and early sepsis My critical care time 45-60 minutes ROR Labs Reviewed Laboratory Results Reviewed?: Yes Result Diagrams: 11/11/19 04:53 11/11/19 14:00 Laboratory: 11/07/19 10:25 Blood Blood Culture - Final 11/07/19 10:15 Blood Blood Culture - Final WBC 4.8 X10^3/uL (3.6-10.0) 11/07/19 08:53 RBC 4.16 X10^6/uL (4.7-6.0) L 11/07/19 08:53 Hgb 12.9 g/dL (13.5-18.0) L 11/07/19 08:53 Hct 39.4 % (42.0-54.0) L 11/07/19 08:53 MCV 94.6 fL (80.0-100.0) 11/07/19 08:53 MCH 31.0 pg (27.0-34.0) 11/07/19 08:53 MCHC 32.8 g/dL (33.0-35.0) L 11/07/19 08:53 RDW 13.5 % (11.6-16.5) 11/07/19 08:53 Plt Count 182 X10^3/uL (150.0-450.0) 11/07/19 08:53 MPV 8.1 fL (7.4-11.0) 11/07/19 08:53 Neut % (Auto) 73.3 % (42.0-75.0) 11/07/19 08:53 Lymph % (Auto) 20.1 % (21.0-51.0) L 11/07/19 08:53 Douglas % (Auto) 6.2 % (0.0-13.0) 11/07/19 08:53 Eos % (Auto) 0.0 % (0.9-2.9) L 11/07/19 08:53 Baso % (Auto) 0.4 % (0.2-1.0) 11/07/19 08:53 Neut # (Auto) 3.5 x10^3/uL (2.2-4.8) 11/07/19 08:53 Lymph # (Auto) 1.0 X10^3/uL (1.3-2.9) L 11/07/19 08:53 Douglas # (Auto) 0.3 x10^3/uL (0.3-0.8) 11/07/19 08:53 Eos # (Auto) 0.0 x10^3/uL (0.0-0.2) 11/07/19 08:53 Baso # (Auto) 0.0 X10^3/uL (0.0-0.1) 11/07/19 08:53 Absolute Nucleated RBC 0.0 /100WBC 11/07/19 08:53 Sample Site Rrad 11/07/19 08:52 ABG pH 7.440 (7.35-7.45) 11/07/19 08:52 ABG pCO2 45.0 mmHg (35.0-45.0) 11/07/19 08:52 ABG pO2 34.0 mmHg (80.0-100.0) L* 11/07/19 08:52 ABG HCO3 30.6 mmol/L (22-26) H* 11/07/19 08:52 ABG O2 Saturation 68.0 % (90-100) L* 11/07/19 08:52 ABG Base Excess 5.6 mmol/L (-2.0-2.0) H 11/07/19 08:52 Mario Alberto Test Pos 11/07/19 08:52 A-a Gradient 166.0 mmHg 11/07/19 08:52 FiO2 36.0 11/07/19 08:52 Blood Gas Comments Pt aminata well elj 11/07/19 08:52 Sodium 137 mmol/L (136-145) 11/07/19 08:53 Corrected Sodium TNP 11/07/19 08:53 Potassium 4.1 mmol/L (3.5-5.1) 11/07/19 08:53 Chloride 102 mmol/L (98-107) 11/07/19 08:53 Carbon Dioxide 26.8 mmol/L (21-32) 11/07/19 08:53 BUN 21 mg/dL (7-18) H 11/07/19 08:53 Creatinine 1.54 mg/dL (0.70-1.30) H 11/07/19 08:53 Est GFR (MDRD) Af Amer > 60 (>60) 11/07/19 08:53 Est GFR (MDRD) Non-Af 54 (>60) L 11/07/19 08:53 Glucose 97 mg/dL (65-99) 11/07/19 08:53 Lactic Acid 2.4 mmol/L (0.4-2.0) H 11/07/19 08:53 Calcium 7.1 mg/dL (8.5-10.1) L 11/07/19 08:53 Corrected Calcium 8.2 mg/dL (8.5-10.1) L 11/07/19 08:53 Total Bilirubin 0.40 mg/dL (0.2-1.0) 11/07/19 08:53 AST 64 Units/L (15-37) H 11/07/19 08:53 ALT 42 Units/L (12-78) 11/07/19 08:53 Alkaline Phosphatase 86 Units/L (46-116) 11/07/19 08:53 B-Natriuretic Peptide 9.5 pg/mL (0-79) 11/07/19 08:53 Total Protein 6.8 g/dL (6.4-8.2) 11/07/19 08:53 Albumin 2.6 g/dL (3.4-5.0) L 11/07/19 08:53 Globulin 4.2 g/dL (2.5-4.5) 11/07/19 08:53 Albumin/Globulin Ratio 0.6 Ratio (1.1-2.1) L 11/07/19 08:53 XRAY XRAY Findings: pCXR pulmonary edema Opioid Opioid Risk Tool Age (Dudley box if 16-45): Yes History of Preadolescent Sexual Abuse: No Total: 1 Total Score Risk Category: Low Risk Copyright: Layne predicting aberrant behaviors Diagnosis Discharge Problem: Cardiomegaly Instructions Forms: Excuse From Work Patient Portal ADDITIONAL NOTES Additional Notes Additional Notes: Pt is critically ill. Will admit for hypoxia, hypotension, early sepsis, influenza, COPD exacerbation, and dehydration
[2019-11-07] MEDS ORDERED: SOLU-Medrol 125 MG VIAL ONE (09:02)
[2019-11-07 09:04] LABS: BASOPHILS % (AUTO) 0.4 % (0.2-1.0); HEMATOCRIT 39.4 % (42.0-54.0); HEMOGLOBIN 12.9 g/dL (13.5-18.0); LYMPHOCYTES % (AUTO) 20.1 % (21.0-51.0); MEAN CORPUSCULAR HGB CONC 32.8 g/dL (33.0-35.0); MEAN CORPUSCULAR VOLUME 94.6 fL (80.0-100.0); MEAN PLATELET VOLUME 8.1 fL (7.4-11.0); MONOCYTES # (AUTO) 0.3 x10^3/uL (0.3-0.8); MONOCYTES % (AUTO) 6.2 % (0.0-13.0); NEUTROPHILS # (AUTO) 3.5 x10^3/uL (2.2-4.8); NEUTROPHILS % (AUTO) 73.3 % (42.0-75.0); PLATELET COUNT 182 X10^3/uL (150.0-450.0); RED BLOOD COUNT 4.16 X10^6/uL (4.7-6.0); RED CELL DISTRIBUTION WIDTH 13.5 % (11.6-16.5); WHITE BLOOD COUNT 4.8 X10^3/uL (3.6-10.0)
[2019-11-07 09:06] LABS: ABG BASE EXCESS 5.6 mmol/L (-2.0-2.0)
[2019-11-07 09:07] LABS: ABG ALLEN TEST POS; ABG HCO3 30.6 mmol/L (22-26)
[2019-11-07] MEDS ORDERED: DUONEB 0.5 MG/3 MG (3 mL) NEB ONE ×2 (09:16→09:17)
[2019-11-07] MEDS ORDERED: TYLENOL 500 MG TAB EXTRA STRENGTH PO ONE ×2 (09:18→09:22)
--- NOTE | 2019-11-07 09:22 | RAD ---
HISTORYFall after dizziness. Shortness of breath and fever.STUDYPortable AP chestCOMPARISONJanuary 2019FINDINGSThere is mild cardiomegaly. There is new diffuse bilateral airspace disease with air bronchograms, right lung overall worse than left. There is relative sparing of the left upper lobe compared to other lobes. No bony abnormality is suggested.IMPRESSIONCardiomegaly and new severe bilateral perihilar and lower lobe and upper lobe on the right infiltrates that may represent pneumonia or pulmonary edemaElectronically signed by: CHAR WALTER (Nov 07, 2019 09:21:30)
[2019-11-07 09:23] LABS: LACTIC ACID 2.4 mmol/L (0.4-2.0)
[2019-11-07 09:24] LABS: ALANINE AMINOTRANSFERASE 42 Units/L (12-78); ALBUMIN 2.6 g/dL (3.4-5.0); ALKALINE PHOSPHATASE 86 Units/L (46-116); ASPARTATE AMINO TRANSFERASE 64 Units/L (15-37); BLOOD UREA NITROGEN 21 mg/dL (7-18); CALCIUM 7.1 mg/dL (8.5-10.1); CARBON DIOXIDE 26.8 mmol/L (21-32); CHLORIDE 102 mmol/L (98-107); COR CA(FOR HYPOALB) 8.2 mg/dL (8.5-10.1); CREATININE 1.54 mg/dL (0.70-1.30); SODIUM 137 mmol/L (136-145); TOTAL PROTEIN 6.8 g/dL (6.4-8.2); eGFR NON BLACK RACES 54 (>60)
[2019-11-07] MEDS ORDERED: LASIX IVP ONE (10:09)
[2019-11-07] MEDS ORDERED: LASIX ONE (10:17)
[2019-11-07] MEDS ORDERED: LEVAQUIN PREMIX IV 750 MG 750 MG/150 ML BAG IV ONE ×2 (10:46→13:46)
[2019-11-07] MEDS ORDERED: NS 250 ML IV 250 ML IV ONE (10:47)
[2019-11-07] MEDS: LEVAQUIN PREMIX IV 750 MG 750 MG/150 ML BAG IV ONE ×2 (10:50→11:03)
[2019-11-07 11:31] LABS: BILIRUBIN,URINE NEGATIVE (NEGATIVE); BLOOD/HEMOGLOBIN,URINE 5+ (NEGATIVE); GLUCOSE, URINE NEGATIVE (NEGATIVE); KETONES,URINE NEGATIVE (NEGATIVE); LEUKOCYTE ESTERASE ,URINE 1+ (NEGATIVE); NITRITES,URINE NEGATIVE (NEGATIVE); PROTEIN,URINE 4+ (NEGATIVE); UROBILINOGEN,URINE 1+ (NORMAL)
[2019-11-07 11:39] LABS: APPEARANCE,URINE HAZY (CLEAR); BACTERIA,URINE TRACE /HPF (NEGATIVE); COLOR,URINE AMBER (YELLOW); MUCUS,URINE FEW /HPF (NEGATIVE); RBC,URINE TNTC /HPF (0-3); SQUAMOUS EPITHELIAL CELL,UR RARE /HPF (NEGATIVE)
--- NOTE | 2019-11-07 12:20 | CT ---
HISTORYShortness of breathSTUDYCTA chest with contrast for pulmonary embolusTechnique: Axial post-contrast images with coronal, sagittal, and 3 dimensional maximum intensity projection images obtained and evaluated. Dose reduction procedures were used with mA/kv adjusted for body size. Resolution is significantly limited due to the patient's body habitusCOMPARISONNoneFINDINGSThere is no evidence for acute pulmonary thromboembolic disease in the main pulmonary artery, right and left main pulmonary arteries, and lobar branches. Evaluation more distally is limited due to artifact related to the patient's body habitus. Examination of the mediastinum demonstrated no evidence for mediastinal masses, enlarged mediastinal or enlarged hilar adenopathy. The heart is enlarged. No pleural effusions are identified. No chest wall or axillary abnormality is identified. Those portions of the upper abdominal organs visualized were within normal limits. Examination of the lung chau demonstrated severe diffuse bilateral perihilar alveolar filling somewhat asymmetric more prominent on the right than the left. This could be on the basis of asymmetric cardiogenic or noncardiogenic edema, bilateral pneumonia, or ARDS.IMPRESSIONNo evidence for acute pulmonary thromboembolic disease in the main pulmonary artery, right and left main pulmonary artery, and lobar branches. Evaluation more peripherally is not possible due to significant artifact related to the patient's body habitus.Marked cardiomegaly with bilateral perihilar alveolar filling somewhat asymmetric more prominent on the right than the left. This could represent asymmetric cardiogenic or noncardiogenic pulmonary edema, severe bilateral pneumonia, pulmonary hemorrhage, or ARDS.Electronically signed by: JASMINA ORTIZ (Nov 07, 2019 12:19:27)
[2019-11-07] MEDS ORDERED: TYLENOL 500 MG TAB EXTRA STRENGTH PO PRN (13:51)
[2019-11-07] MEDS: SOLU-Medrol 125 MG VIAL IVP SCH ×2 (14:57→21:53)
[2019-11-07] MEDS: DUONEB 0.5 MG/3 MG (3 mL) NEB SCH ×2 (16:23→18:51)
[2019-11-07 17:02] LABS: HEMATOCRIT 40.7 % (42.0-54.0); HEMOGLOBIN 13.3 g/dL (13.5-18.0)
[2019-11-07] MEDS: PULMICORT NEB TX 0.5 MG NEB SCH (20:58)
[2019-11-07] MEDS: COREG TAB 25 MG PO SCH (21:19)
[2019-11-07 23:43] LABS: HEMOGLOBIN 13.8 g/dL (13.5-18.0)
[2019-11-08] MEDS: DUONEB 0.5 MG/3 MG (3 mL) NEB SCH ×4 (00:50→17:21)
[2019-11-08] MEDS: SOLU-Medrol 125 MG VIAL IVP SCH (05:55)
[2019-11-08 06:38] LABS: BASOPHILS % (AUTO) 0.8 % (0.2-1.0); EOSINOPHILS % (AUTO) 0.1 % (0.9-2.9); HEMATOCRIT 41.7 % (42.0-54.0); HEMOGLOBIN 13.9 g/dL (13.5-18.0); LYMPHOCYTES # (AUTO) 0.8 X10^3/uL (1.3-2.9); LYMPHOCYTES % (AUTO) 21.8 % (21.0-51.0); MEAN CORPUSCULAR HEMOGLOBIN 31.3 pg (27.0-34.0); MEAN CORPUSCULAR HGB CONC 33.3 g/dL (33.0-35.0); MEAN CORPUSCULAR VOLUME 94.1 fL (80.0-100.0); MEAN PLATELET VOLUME 8.1 fL (7.4-11.0); MONOCYTES # (AUTO) 0.4 x10^3/uL (0.3-0.8); MONOCYTES % (AUTO) 9.5 % (0.0-13.0); NEUTROPHILS # (AUTO) 2.6 x10^3/uL (2.2-4.8); NEUTROPHILS % (AUTO) 67.8 % (42.0-75.0); PLATELET COUNT 215 X10^3/uL (150.0-450.0); RED BLOOD COUNT 4.43 X10^6/uL (4.7-6.0); RED CELL DISTRIBUTION WIDTH 13.4 % (11.6-16.5); WHITE BLOOD COUNT 3.8 X10^3/uL (3.6-10.0)
[2019-11-08 07:12] LABS: ALANINE AMINOTRANSFERASE 34 Units/L (12-78); ALBUMIN 2.4 g/dL (3.4-5.0); ALKALINE PHOSPHATASE 90 Units/L (46-116); ASPARTATE AMINO TRANSFERASE 46 Units/L (15-37); BLOOD UREA NITROGEN 26 mg/dL (7-18); CALCIUM 7.4 mg/dL (8.5-10.1); CARBON DIOXIDE 27.3 mmol/L (21-32); CHLORIDE 103 mmol/L (98-107); COR CA(FOR HYPOALB) 8.7 mg/dL (8.5-10.1); COR NA(FOR HYPERGLY) 139 mmol/L (136-145); CREATININE 1.52 mg/dL (0.70-1.30); SODIUM 138 mmol/L (136-145); eGFR NON BLACK RACES 55 (>60)
[2019-11-08] MEDS ORDERED: NS 500 ML IV 500 ML IV ONE (08:44)
[2019-11-08] MEDS: LEVAQUIN PREMIX IV 750 MG 750 MG/150 ML BAG IV SCH (08:51)
[2019-11-08] MEDS: COREG TAB 25 MG PO SCH ×2 (08:51→21:15)
[2019-11-08] MEDS ORDERED: NORVASC TAB 10 MG PO SCH (09:00)
[2019-11-08] MEDS: PULMICORT NEB TX 0.5 MG NEB SCH (09:15)
[2019-11-08] MEDS: LR 1000 ML IV 1,000 ML IV SCH ×2 (10:36→22:58)
[2019-11-08] MEDS: TAMIFLU PO SCH ×2 (10:36→21:15)
[2019-11-08] MEDS: LANOXIN PO SCH (14:52)
[2019-11-08] MEDS: PriLOSEC PO SCH (15:41)
[2019-11-09] MEDS: DUONEB 0.5 MG/3 MG (3 mL) NEB SCH ×4 (01:01→17:29)
[2019-11-09 05:51] LABS: BASOPHILS % (AUTO) 0.2 % (0.2-1.0); HEMATOCRIT 37.5 % (42.0-54.0); HEMOGLOBIN 12.5 g/dL (13.5-18.0); LYMPHOCYTES # (AUTO) 0.9 X10^3/uL (1.3-2.9); LYMPHOCYTES % (AUTO) 10.9 % (21.0-51.0); MEAN CORPUSCULAR HEMOGLOBIN 31.9 pg (27.0-34.0); MEAN CORPUSCULAR HGB CONC 33.2 g/dL (33.0-35.0); MEAN CORPUSCULAR VOLUME 96.1 fL (80.0-100.0); MEAN PLATELET VOLUME 8.8 fL (7.4-11.0); MONOCYTES # (AUTO) 0.6 x10^3/uL (0.3-0.8); MONOCYTES % (AUTO) 7.2 % (0.0-13.0); NEUTROPHILS % (AUTO) 81.7 % (42.0-75.0); PLATELET COUNT 215 X10^3/uL (150.0-450.0); RED BLOOD COUNT 3.91 X10^6/uL (4.7-6.0); RED CELL DISTRIBUTION WIDTH 13.4 % (11.6-16.5); WHITE BLOOD COUNT 8.5 X10^3/uL (3.6-10.0)
[2019-11-09 06:05] LABS: ALANINE AMINOTRANSFERASE 27 Units/L (12-78); ALBUMIN 2.1 g/dL (3.4-5.0); ALKALINE PHOSPHATASE 74 Units/L (46-116); ASPARTATE AMINO TRANSFERASE 39 Units/L (15-37); BLOOD UREA NITROGEN 38 mg/dL (7-18); CALCIUM 7.4 mg/dL (8.5-10.1); CHLORIDE 105 mmol/L (98-107); COR CA(FOR HYPOALB) 8.9 mg/dL (8.5-10.1); COR NA(FOR HYPERGLY) 140 mmol/L (136-145); CREATININE 1.56 mg/dL (0.70-1.30); SODIUM 139 mmol/L (136-145); TOTAL PROTEIN 6.1 g/dL (6.4-8.2); eGFR NON BLACK RACES 53 (>60)
--- NOTE | 2019-11-09 06:24 | RAD ---
HISTORYARDS, pneumoniaSTUDYCHEST, PA/LAT [id number]/21/2020FINDINGSThe heart remains enlarged. Bilateral alveolar filling is again identified. It remains asymmetric more prominent on the right than the left. No significant improvement. No pleural effusions are identified. The bony thorax is unremarkable.IMPRESSIONContinued cardiomegalyNo change bilateral infiltratesElectronically signed by: JASMINA ORTIZ (Nov 09, 2019 06:23:02)
[2019-11-09] MEDS: LANOXIN PO SCH (08:26)
[2019-11-09] MEDS: COREG TAB 25 MG PO SCH ×2 (08:26→21:15)
[2019-11-09] MEDS: LEVAQUIN PREMIX IV 750 MG 750 MG/150 ML BAG IV SCH (08:27)
[2019-11-09] MEDS: PriLOSEC PO SCH (08:28)
[2019-11-09] MEDS: TAMIFLU PO SCH ×2 (08:28→21:15)
[2019-11-09] MEDS: LR 1000 ML IV 1,000 ML IV SCH (13:01)
[2019-11-09] MEDS: XANAX PO PRN (15:36)
[2019-11-10] MEDS ORDERED: VISTARIL PO ONE ×2 (00:05)
[2019-11-10] MEDS: DUONEB 0.5 MG/3 MG (3 mL) NEB SCH ×4 (00:48→16:44)
[2019-11-10] MEDS: LR 1000 ML IV 1,000 ML IV SCH ×4 (01:55→19:00)
[2019-11-10] MEDS: XANAX PO PRN (03:30)
[2019-11-10 07:41] LABS: ALANINE AMINOTRANSFERASE 38 Units/L (12-78); ALBUMIN 2.1 g/dL (3.4-5.0); ALKALINE PHOSPHATASE 100 Units/L (46-116); ASPARTATE AMINO TRANSFERASE 46 Units/L (15-37); BLOOD UREA NITROGEN 29 mg/dL (7-18); CALCIUM 7.6 mg/dL (8.5-10.1); CARBON DIOXIDE 31.9 mmol/L (21-32); CHLORIDE 105 mmol/L (98-107); COR CA(FOR HYPOALB) 9.1 mg/dL (8.5-10.1); CREATININE 1.33 mg/dL (0.70-1.30); SODIUM 141 mmol/L (136-145); TOTAL PROTEIN 6.7 g/dL (6.4-8.2); eGFR NON BLACK RACES > 60 (>60)
[2019-11-10 07:42] LABS: BASOPHILS % (AUTO) 0.3 % (0.2-1.0); EOSINOPHILS % (AUTO) 0.1 % (0.9-2.9); HEMOGLOBIN 13.1 g/dL (13.5-18.0); LYMPHOCYTES # (AUTO) 1.2 X10^3/uL (1.3-2.9); LYMPHOCYTES % (AUTO) 9.6 % (21.0-51.0); MEAN CORPUSCULAR HEMOGLOBIN 30.8 pg (27.0-34.0); MEAN CORPUSCULAR HGB CONC 32.1 g/dL (33.0-35.0); MEAN CORPUSCULAR VOLUME 96.1 fL (80.0-100.0); MEAN PLATELET VOLUME 8.4 fL (7.4-11.0); MONOCYTES # (AUTO) 0.8 x10^3/uL (0.3-0.8); PLATELET COUNT 197 X10^3/uL (150.0-450.0); RED BLOOD COUNT 4.27 X10^6/uL (4.7-6.0); RED CELL DISTRIBUTION WIDTH 13.5 % (11.6-16.5)
[2019-11-10 07:48] LABS: PLATELET MORPHOLOGY COMMENT NORMAL (NORMAL)
[2019-11-10] MEDS ORDERED: BUSPAR PO PRN (08:27)
--- NOTE | 2019-11-10 09:35 | RAD ---
HISTORYARDSSTUDYCHEST, 1 VIEWCOMPARISONCHEST FILM NOVEMBER 09, 2019. FINDINGSThe trachea is midline. The cardiac silhouette is markedly enlarged but unchanged from yesterday's film. Pulmonary alveolar infiltrates in the left lung base and right mid to lower lung field are again noted most consistent with pulmonary edema. No pleural effusion is observed.. The lungs are clear without focal infiltrate or effusion. The bony thorax is unremarkable.IMPRESSIONPersistent unchanged cardiomegaly and bilateral right greater than left pulmonary alveolar infiltrates consistent with pulmonary edema and CHF.Electronically signed by: KRISTIN FREEDMAN (Nov 10, 2019 09:34:28)
[2019-11-10] MEDS: COREG TAB 25 MG PO SCH ×2 (09:38→22:01)
[2019-11-10] MEDS: LANOXIN PO SCH (09:38)
[2019-11-10] MEDS: TAMIFLU PO SCH ×2 (09:39→22:02)
[2019-11-10] MEDS: PriLOSEC PO SCH (09:39)
[2019-11-10] MEDS: LEVAQUIN PREMIX IV 750 MG 750 MG/150 ML BAG IV SCH (09:39)
[2019-11-10] MEDS: XANAX PO SCH ×2 (09:39→13:23)
[2019-11-10] MEDS ORDERED: DIPRIVAN VIAL 20 ML ONE (09:43)
[2019-11-10] MEDS ORDERED: QUELICIN (OR ANECTINE) ONE (09:44)
[2019-11-10] MEDS: ZYVOX 600MG IV 600 MG/300 ML BAG IV SCH ×2 (10:47→23:00)
[2019-11-10] MEDS: LOVENOX INJ 40 MG SYR SC SCH (10:49)
[2019-11-10] MEDS ORDERED: ATIVAN INJ 2 MG VIAL IVP PRN (14:51)
[2019-11-10] MEDS ORDERED: ATIVAN INJ 2 MG VIAL ONE (14:54)
[2019-11-10 17:54] LABS: ABG BASE EXCESS 6.9 mmol/L (-2.0-2.0)
[2019-11-10 17:55] LABS: ABG HCO3 33.7 mmol/L (22-26)
[2019-11-10 17:56] LABS: ABG ALLEN TEST POS
[2019-11-10] MEDS ORDERED: DIPRIVAN PREMIX 1 GRAM IV 1,000 MG/100 ML VIAL ONE (19:01)
[2019-11-10] MEDS ORDERED: ADRENALINE CHL INJ IVP ONE (19:05)
[2019-11-10] MEDS ORDERED: NORCURON INJ 10 MG VIAL ONE ×2 (19:13→19:14)
[2019-11-10 19:59] LABS: BILIRUBIN,URINE NEGATIVE (NEGATIVE); BLOOD/HEMOGLOBIN,URINE 5+ (NEGATIVE); GLUCOSE, URINE NEGATIVE (NEGATIVE); KETONES,URINE 2+ (NEGATIVE); LEUKOCYTE ESTERASE ,URINE 1+ (NEGATIVE); NITRITES,URINE NEGATIVE (NEGATIVE); PROTEIN,URINE 4+ (NEGATIVE); UROBILINOGEN,URINE NORMAL (NORMAL)
[2019-11-10 20:03] LABS: APPEARANCE,URINE TURBID (CLEAR); COLOR,URINE BLOODY (YELLOW)
--- NOTE | 2019-11-10 20:28 | DR.UPDATE ---
H&P Update History and Physical Update: History and Physical reviewed and patient examined. Changes noted: NO Yes with the following:H&P reviewed, pt examined. will emergently intubate H&P Reviewed: Yes Patient was examined?: Yes Procedures (ALL) - Intubation Time out performed: Yes Sedative: other (150mg) paralytic: succinylchline (140mg) Laryngoscope: fiber optic video scope (glidescope 4) ET tube size: 8.5 Tube secured depth: 23 Tube secured location: teeth Tube placement confirmation: visualized tube passing through cords, equal breath sounds bilaterally, no breath sounds over epigastrium, comfirmation by capnometer Patient tolerated procedure: Yes Intubation complications: none (after intubation, cuff leak was noted. [place] intubation catheter was inserted into existing oett then existing ett was removed. 8.5 oett was reinserted over antree and aintree was removed. BBS and positive capnography was noted. the tube exchange transpired over a total time of 20 seconds.)
[2019-11-10] MEDS ORDERED: NS 50 ML IV 50 ML IV ONE (20:31)
[2019-11-10 20:35] LABS: AMORPHOUS SEDIMENT,UR 2+ /HPF (NEGATIVE); BACTERIA,URINE NEGATIVE /HPF (NEGATIVE); HYALINE CASTS, URINE RARE /LPF (NEGATIVE); RBC,URINE TNTC /HPF (0-3); RENAL EPITHELIAL CELLS,URINE RARE /HPF (NEGATIVE); SQUAMOUS EPITHELIAL CELL,UR RARE /HPF (NEGATIVE)
[2019-11-10] MEDS: NORCURON INJ 10 MG VIAL 50 MG in NS 50 ML IV 50 ML IV PRN (20:45)
[2019-11-10] MEDS ORDERED: NORCURON INJ 10 MG VIAL IVP ONE (20:45)
--- NOTE | 2019-11-10 21:01 | RAD ---
KUBHISTORY: TUBE PLACEMENTStudy: Single view of the chest.Comparison:NoneFindings:Cardiomegaly and diffuse bilateral airspace opacities.Endotracheal tube terminates 3.1 cm above the cristina. Osseous structures demonstrate no acute abnormality.IMPRESSION:1. Cardiomegaly and diffuse bilateral pulmonary opacities.2. Endotracheal tube terminates 3.1 cm above the cristina.Electronically signed by: DAVID DINERO (Nov 10, 2019 21:00:13)
--- NOTE | 2019-11-10 21:02 | RAD ---
CHEST, 1 VIEWHISTORY: TUBE PLACEMENTStudy: Single view of the chest.Comparison:NoneFindings:Cardiomegaly and diffuse bilateral pulmonary opacities.Endotracheal tube terminates 3.1 cm above the cristina. Osseous structures demonstrate no acute abnormality.IMPRESSION:1. Cardiomegaly and bilateral pulmonary opacities.2. Endotracheal tube terminating 3.1 cm above the cristina.Electronically signed by: DAVID DINERO (Nov 10, 2019 21:01:13)
[2019-11-10] MEDS: DIPRIVAN PREMIX 1 GRAM IV 1,000 MG/100 ML VIAL IV PRN (22:15)
[2019-11-10 23:50] LABS: ABG HCO3 33.2 mmol/L (22-26)
[2019-11-10 23:51] LABS: ABG ALLEN TEST POS
[2019-11-11] MEDS ORDERED: LR 1000 ML IV 1,000 ML IV SCH
[2019-11-11] MEDS: DUONEB 0.5 MG/3 MG (3 mL) NEB SCH ×3 (00:45→15:33)
--- NOTE | 2019-11-11 02:07 | RAD ---
Chest AP portableIndication: ET tube placement. Patient with ARDS and cardiac arrestCOMPARISONPrevious day's radiograph.FINDINGSETT tip is at the clavicles. NG tube is directed towards the stomach. Monitoring leads obscure detail. There is no pneumothorax. There is cardiomegaly with bilateral dense pulmonary opacities, worse on the right. This is similar to the prior. Small right effusion present.IMPRESSION1. Cardiomegaly and dense bilateral pulmonary opacities. These are similar to the prior, possibly reflecting severe edema, ARDS or bronchopneumonia2. ET tube and NG tube projects as expected.Electronically signed by: MARTITA CRESPO (Nov 11, 2019 02:05:20)
[2019-11-11 02:16] LABS: ABG HCO3 31.7 mmol/L (22-26)
[2019-11-11 02:17] LABS: ABG ALLEN TEST POS
[2019-11-11] MEDS ORDERED: NS 500 ML IV 500 ML IV ONE ×2 (02:48→03:10)
[2019-11-11] MEDS: DIPRIVAN PREMIX 1 GRAM IV 1,000 MG/100 ML VIAL IV PRN ×5 (03:00→12:04)
[2019-11-11 04:24] LABS: ABG ALLEN TEST POS
[2019-11-11] MEDS ORDERED: LANOXIN INJ IVP ONE ×2 (04:45→11:04)
[2019-11-11] MEDS ORDERED: LANOXIN INJ ONE (04:48)
[2019-11-11] MEDS ORDERED: NORCURON INJ 10 MG VIAL ONE (05:25)
[2019-11-11 05:35] LABS: BASOPHILS # (AUTO) 0.1 X10^3/uL (0.0-0.1); BASOPHILS % (AUTO) 0.3 % (0.2-1.0); EOSINOPHILS % (AUTO) 0.1 % (0.9-2.9); HEMATOCRIT 36.9 % (42.0-54.0); HEMOGLOBIN 11.9 g/dL (13.5-18.0); LYMPHOCYTES # (AUTO) 1.2 X10^3/uL (1.3-2.9); LYMPHOCYTES % (AUTO) 4.7 % (21.0-51.0); MEAN CORPUSCULAR HEMOGLOBIN 31.2 pg (27.0-34.0); MEAN CORPUSCULAR HGB CONC 32.2 g/dL (33.0-35.0); MEAN CORPUSCULAR VOLUME 96.8 fL (80.0-100.0); MEAN PLATELET VOLUME 8.5 fL (7.4-11.0); MONOCYTES # (AUTO) 0.9 x10^3/uL (0.3-0.8); MONOCYTES % (AUTO) 3.8 % (0.0-13.0); NEUTROPHILS # (AUTO) 22.5 x10^3/uL (2.2-4.8); NEUTROPHILS % (AUTO) 91.1 % (42.0-75.0); PLATELET COUNT 174 X10^3/uL (150.0-450.0); RED BLOOD COUNT 3.82 X10^6/uL (4.7-6.0); RED CELL DISTRIBUTION WIDTH 13.5 % (11.6-16.5); WHITE BLOOD COUNT 24.7 X10^3/uL (3.6-10.0)
[2019-11-11 05:56] LABS: ALBUMIN 1.6 g/dL (3.4-5.0); CALCIUM 7.2 mg/dL (8.5-10.1); COR CA(FOR HYPOALB) 9.1 mg/dL (8.5-10.1); CREATININE 2.29 mg/dL (0.70-1.30)
[2019-11-11 05:58] LABS: ABG BASE EXCESS 3.4 mmol/L (-2.0-2.0)
[2019-11-11 05:59] LABS: ABG ALLEN TEST POS
[2019-11-11 07:01] LABS: BAND NEUTROPHILS % 10 % (0-10); PLATELET MORPHOLOGY COMMENT NORMAL (NORMAL)
[2019-11-11] MEDS ORDERED: NS 500 ML IV 0 ML IV ONE (08:36)
[2019-11-11] MEDS ORDERED: HEPARIN SODIUM INJ 5000 UNITS ONE (08:37)
[2019-11-11] MEDS: NORCURON INJ 10 MG VIAL 50 MG in NS 50 ML IV 50 ML IV PRN (09:08)
[2019-11-11 09:48] LABS: ABG BASE EXCESS 3.4 mmol/L (-2.0-2.0)
[2019-11-11 09:49] LABS: ABG HCO3 31.2 mmol/L (22-26)
--- NOTE | 2019-11-11 11:01 | DR.UPDATE ---
H&P Update History and Physical Update: History and Physical reviewed and patient examined. Changes noted: NO Yes with the following:will place art line as ordered per dr salas H&P Reviewed: Yes Patient was examined?: Yes Procedures (ALL) - Arterial Line Consent obtained: written consent Time out performed: Yes Size(gauge): 20 Technique used: guided wire technique Post-procedure: dry sterile dressing placed Patient tolerated procedure: Yes Site: right, radial
--- NOTE | 2019-11-11 11:06 | DR.UPDATE ---
H&P Update History and Physical Update: History and Physical reviewed and patient examined. Changes noted: NO Yes with the following:will exchange ett secondary to cuff leak H&P Reviewed: Yes Patient was examined?: Yes Procedures (ALL) - Intubation Time out performed: Yes Sedative: other (propofol infusion ongoing) paralytic: vecuronium (vecuronium infusion ongoing) Assist device used: bougie (cook tube exchanger) ET tube size: 8.5 Tube secured depth: 23 Tube secured location: teeth Tube placement confirmation: equal breath sounds bilaterally, comfirmation by capnometer Patient tolerated procedure: Yes Intubation complications: none (confirmed by cxr)
[2019-11-11] MEDS: LOVENOX INJ 40 MG SYR SC SCH (11:16)
[2019-11-11] MEDS: ZYVOX 600MG IV 600 MG/300 ML BAG IV SCH (11:17)
[2019-11-11] MEDS: PriLOSEC PO SCH (11:17)
[2019-11-11] MEDS: TAMIFLU PO SCH (11:17)
--- NOTE | 2019-11-11 11:20 | RAD ---
HISTORYCentral line placementSTUDYPortable AP chestCOMPARISONToday at 2 a.m.FINDINGSThere is a left internal jugular central line with the tip in the upper SVC without obvious collapse of the lung. However there is new subcutaneous air in the base of the left neck. An endotracheal tube remains in good position. A nasogastric tube remains in the stomach. There is diffuse airspace disease most severe in the right upper lobe unchanged. The heart size is prominent. There is no obvious pleural effusion.IMPRESSION1. Subcutaneous air at the base of the left neck related to placement of central line. I cannot definitely see a pneumothorax. Recommend follow-up examination.2. Unchanged lung opacities worse on the right that may reflect pneumonia and/or ARDSElectronically signed by: CHAR WALTER (Nov 11, 2019 11:19:21)
[2019-11-11] MEDS ORDERED: LASIX ONE ×2 (11:59→12:00)
[2019-11-11] MEDS ORDERED: LASIX IVP ONE ×2 (12:00→12:02)
[2019-11-11] MEDS ORDERED: D50W ABBOJECT SYR ONE (12:00)
[2019-11-11] MEDS ORDERED: HumuLIN R ONE (12:01)
[2019-11-11] MEDS ORDERED: PROVENTIL NEB TX 0.083% 2.5MG/ 3ML NEB ONE ×2 (12:02→12:25)
[2019-11-11] MEDS ORDERED: CALCIUM GLUCONATE 10% IV ONE (12:02)
[2019-11-11] MEDS ORDERED: D50W ABBOJECT SYR IV ONE (12:02)
[2019-11-11] MEDS ORDERED: HumuLIN R SUBCUT ONE (12:02)
[2019-11-11 14:05] LABS: ABG BASE EXCESS 4.3 mmol/L (-2.0-2.0); ABG HCO3 26.9 mmol/L (22-26)
[2019-11-11] MEDS ORDERED: NS 1000 ML 1,000 ML ONE (14:20)
[2019-11-11 14:22] LABS: ALBUMIN 1.3 g/dL (3.4-5.0); CALCIUM 6.8 mg/dL (8.5-10.1); CARBON DIOXIDE 25.7 mmol/L (21-32); CREATININE 3.27 mg/dL (0.70-1.30); TOTAL PROTEIN 5.1 g/dL (6.4-8.2)
[2019-11-11] MEDS ORDERED: ALBUMIN HUMAN 25% ONE (14:25)
[2019-11-11] MEDS ORDERED: DIPRIVAN VIAL IV STA (16:07)
[2019-11-11] MEDS ORDERED: LEVOPHED INJ 8 MG in D5W 250 ML IV 242 ML IV PRN (16:12)
[2019-11-11 17:08] VITALS: BP 97/52
[2019-11-12] MEDS ORDERED: LEVAQUIN PREMIX IV 750 MG 750 MG/150 ML BAG IV SCH (09:00)
== END 2019-11-11 15:25 | disposition short-term general hospital (02) | DRG 208 ==
LOC: ER 07:26 → ICU 10:54
PROVIDERS: ADMIT Obstetrics & Gynecology Obstetrics; ATTEND Obstetrics & Gynecology Obstetrics
DX: F41.8 Other specified anxiety disorders; R26.89 Other abnormalities of gait and mobility; R42 Dizziness and giddiness; R94.4 Abnormal results of kidney function studies; B95.62 Methicillin resistant Staphylococcus aureus infection as the cause of diseases classified elsewhere; W18.39XA Other fall on same level, initial encounter; M54.5 Low back pain; I10 Essential (primary) hypertension; J18.8 Other pneumonia, unspecified organism; J80 Acute respiratory distress syndrome; R06.02 Shortness of breath
CPT/HCPCS: 36415; 36556; 36600; 51702; 71010; 71020; 71045; 71046; 71275; 74000; 74018; 80053; 80162; 81001; 82803; 83605; 83880; 85014; 85018; 85025; 85610; 85730; 87040; 87070; 87077; 87186; 87205; 93306; 94002; 94003; 94640; 94660; 96365; 96374; 96375; 97112; 97162; 97165; 97530; 99284; A4222; A4618; A7030; G9035; J0171; J0610; J1160; J1650; J1815; J1940; J1956; J2020; J2060; J2704; J2930; J3490; J7040; J7050; J7060; J7120; J7613; J7620; J7626; Q0177